=== PATIENT | male | born 1975 | race Hispanic/Latino ===

== ENCOUNTER 2019-11-21 12:40 | Emergency (ER) | payer OTHER ==
[~2019-11-21] VITALS: Ht 172.7 cm; Wt 101.9 kg
[2019-11-21] MEDS ORDERED: NYSTATIN-TRIAMC15 GM TOP (13:04)
[2019-11-21] MEDS ORDERED: AUGMENTIN 500-1 EACH PO (13:04)
== END 2019-11-21 13:15 | disposition home or self-care (01) ==
LOC: FSED 12:40
DX: N48.22 Cellulitis of corpus cavernosum and penis (principal)
CPT/HCPCS: 81003; 99283